=== PATIENT | female | born 1980 | race Caucasian/White ===

== ENCOUNTER 2021-03-05 13:41 | Emergency (ER) | payer OTHER ==
[2021-03-05] MEDS ORDERED: fentaNYL 250 MCG/5 ML SDV IM ONE (14:00)
--- NOTE | 2021-03-05 14:06 | EDM.PDOC ---
ED HPI GENERAL MEDICAL PROBLEM - General Chief Complaint: Abdominal Pain Stated Complaint: [facility] Time Seen by Provider: 03/05/21 14:00 Source of Information: Reports: Patient, RN Notes Reviewed History Limitations: Reports: No Limitations - History of Present Illness INITIAL COMMENTS - FREE TEXT/NARRATIVE: 40-year-old female with acute onset of severe lower abdominal pain while out with her kids. Pain is constant severe and unknown to her historically. No menstrual period history for 16 years due to ablation. She is an extremely large lady and laying on her belly rolling around with pain. Further history obtained later will be giving something for pain upfront while reviewing further evaluation At [facility] the patient is more comfortable but now getting recurrent pain. She is able to give me a history now. She was not doing anything when the pain started acutely in the right lower quadrant. She has had a bit of diarrhea apparently with it. The pain is cons tant but fluctuating in intensity and severe. Is no family history of gallbladder disease family members have had their appendix out Lower Abdominal Pain Score (Numeric/FACES): 10 - Related Data Allergies Allergy/AdvReac Type Severity Reaction Status Date / Time No Known Allergies Allergy Verified 03/05/21 13:46 Home Meds: Home Meds FLUoxetine [PROzac] 40 mg PO DAILY 03/05/21 [History] Omeprazole 20 mg PO DAILY 03/05/21 [History] Topiramate [Topamax] 40 mg PO DAILY 03/05/21 [History] Past Medical History Gastrointestinal History: Reports: GERD Musculoskeletal History: Reports: Fracture Psychiatric History: Reports: Anxiety, Depression - Past Surgical History GI Surgical History: Reports: Cholecystectomy Female Surgical History: Reports: Section, Tubal Ligation Social & Family History - Tobacco Use Tobacco Use Status *Q: Former Tobacco User Years of Tobacco use: 13 Used Tobacco, but Quit: Yes Month/Year Tobacco Last Used: 03/20 - Caffeine Use Caffeine Use: Reports: Coffee - Recreational Drug Use Recreational Drug Use: No ED ROS GENERAL - Review of Systems Review Of Systems: Comprehensive ROS is negative, except as noted in HPI. ED EXAM, GI/ABD - Physical Exam Exam: See Below Text/Narrative:: 40-year-old very large female rolling around on the bed complaining of better pain in her lower abdomen and difficult to examine at this juncture because of pain. 2:45 PM: Patient is able to lay on her back now with notable relief of her pain but becoming more recurrent. HEENT shows eyes ears nose and throat appear to be normal Neck is supple normal range of motion Chest is clear regular rate and rhythm Abdomen is generally soft but she has guarding and tenderness in the right lower quadrant area primarily but some in the right upper quadrant as well on deep palpation. There is no rebound with pushing on the left. No masses are felt but she has a huge abdomen. Skin extremities appear to be normal without rash or deformity Neurologic physiologic urine tone Course - Vital Signs Text/Narrative:: White count is 14,000, potassium 3.3, CRP 1.8 and UA is negative Last Recorded V/S: Last Vital Signs Temp 36.4 C 03/05/21 13:55 Pulse 60 03/05/21 18:42 Resp 16 03/05/21 16:55 BP 131/66 03/05/21 18:42 Pulse Ox 89 L 03/05/21 18:42 - Orders/Labs/Meds Orders: Active Orders 24 hr Category Date Time Status Abdomen Pelvis w Cont [CT] Stat Exams 03/05/21 16:51 Taken Iopamidol [Isovue-300 (61%)] Med 03/05/21 17:15 Active 150 ml IV . DIRECTED Sodium Chloride 0.9% [Normal Saline] 1,000 ml Med 03/05/21 15:00 Active IV ASDIRECTED Sodium Chloride 0.9% [Normal Saline] 80 ml Med 03/05/21 17:15 Active IV ASDIRECTED Medication Orders Sodium Chloride (Normal Saline) 1,000 mls @ 150 mls/hr IV ASDIRECTED VINICIUS Last Admin: 03/05/21 15:56 Dose: 150 mls/hr Documented by: MIHIR Sodium Chloride (Normal Saline) 80 mls @ 3 mls/sec IV ASDIRECTED VINICIUS Last Admin: 03/05/21 17:21 Dose: 3 mls/sec Documented by: AUNG Iopamidol (Iopamidol 612 Mg/Ml 150 Ml Bottle) 150 ml IV . DIRECTED [facility] Last Admin: 03/05/21 17:21 Dose: 150 ml Documented by: AUNG Labs: Laboratory Tests 03/05/21 03/05/21 03/05/21 Range/Units 15:08 15:08 16:55 WBC 13.9 H (4.5-11.0) K/uL RBC 4.87 (3.30-5.50) M/uL Hgb 13.2 (12.0-15.0) g/dL Hct 41.6 (36.0-48.0) % MCV 85 (80-98) fL MCH 27 (27-31) pg MCHC 32 (32-36) % Plt Count 233 (150-400) K/uL Sodium 141 (140-148) mmol/L Potassium 3.3 L (3.6-5.2) mmol/L Chloride 105 (100-108) mmol/L Carbon Dioxide 24 (21-32) mmol/L Anion Gap 15.3 H (5.0-14.0) mmol/L BUN 16 (7-18) mg/dL Creatinine 1.1 H (0.6-1.0) mg/dL Est Cr Clr Drug Dosing 62.40 mL/min Estimated GFR (MDRD) 56 L (>60) Glucose 104 (74-106) mg/dL Calcium 8.2 L (8.5-10.1) mg/dL Total Bilirubin 0.5 (0.2-1.0) mg/dL AST 12 L (15-37) U/L ALT 19 (12-78) U/L Alkaline Phosphatase 84 (46-116) U/L C-Reactive Protein 1.79 H (0.0-0.3) mg/dL Total Protein 6.7 (6.4-8.2) g/dL Albumin 3.3 L (3.4-5.0) g/dL Globulin 3.4 (2.3-3.5) g/dL Albumin/Globulin Ratio 1.0 L (1.2-2.2) Urine Color Yellow (YELLOW) Urine Appearance Clear (CLEAR) Urine pH 6.0 (5.0-8.0) Ur Specific Sixes >= 1.030 (1.008-1.030) Urine Protein Negative (NEGATIVE) mg/dL Urine Glucose (UA) Negative (NEGATIVE) mg/dL Urine Ketones Negative (NEGATIVE) mg/dL Urine Occult Blood Negative (NEGATIVE) Urine Nitrite Negative (NEGATIVE) Urine Bilirubin Negative (NEGATIVE) Urine Urobilinogen 1.0 (0.2-1.0) EU/dL Ur Leukocyte Esterase Negative (NEGATIVE) Urine RBC Not seen (0-5) Urine WBC Not seen (0-5) Ur Epithelial Cells Occasional Amorphous Sediment Few Urine Bacteria Rare Urine Mucus Rare Meds: Medications Generic Name Dose Route Start Last Admin Trade Name Freq PRN Reason Stop Dose Admin Sodium Chloride 1,000 mls @ 150 mls/hr 03/05/21 15:00 03/05/21 15:56 Normal Saline IV 150 mls/hr ASDIRECTED VINICIUS Administration Sodium Chloride 80 mls @ 3 mls/sec 03/05/21 17:15 03/05/21 17:21 Normal Saline IV 3 mls/sec ASDIRECTED VINICIUS Administration Iopamidol 150 ml 03/05/21 17:15 03/05/21 17:21 Iopamidol 612 Mg/Ml 150 Ml Bottle IV 150 ml . DIRECTED VINICIUS Administration Discontinued Medications Generic Name Dose Route Start Last Admin Trade Name Freq PRN Reason Stop Dose Admin Fentanyl 250 mcg 03/05/21 14:00 03/05/21 14:16 Fentanyl 250 Mcg/5 Ml Sdv IM 03/05/21 14:01 Not Given ONETIME ONE Fentanyl 250 mcg 03/05/21 14:12 03/05/21 14:13 Fentanyl 100 Mcg/2 Ml Sdv IM 03/05/21 14:13 250 mcg ONETIME ONE Administration Fentanyl 100 mcg 03/05/21 15:50 03/05/21 15:59 Fentanyl 100 Mcg/2 Ml Sdv IVPUSH 03/05/21 15:51 100 mcg ONETIME ONE Administration Hydromorphone HCl 1 mg 03/05/21 17:32 03/05/21 17:38 Hydromorphone 1 Mg/Ml Syringe IVPUSH 03/05/21 17:33 1 mg ONETIME ONE Administration Hydromorphone HCl 1 mg 03/05/21 19:27 03/05/21 19:38 Hydromorphone 1 Mg/Ml Syringe IVPUSH 03/05/21 19:28 1 mg ONETIME ONE Administration Ondansetron HCl 4 mg 03/05/21 16:41 03/05/21 16:46 Ondansetron 4 Mg/2 Ml Sdv IVPUSH 03/05/21 16:42 4 mg ONETIME ONE Administration Ondansetron HCl 4 mg 03/05/21 17:32 03/05/21 17:39 Ondansetron 4 Mg/2 Ml Sdv IVPUSH 03/05/21 17:33 4 mg ONETIME ONE Administration - Re-Assessments/Exams Free Text/Narrative Re-Assessment/Exam: 03/05/21 19:58 Patient has had significant pain while here with relief from fentanyl and then Dilaudid with some Zofran for nausea. CAT scan shows about a 4 mm stone at the ureteral pelvic junction which should likely pass She is given Toradol 15 mg prior to discharge with admonition to continue with 600 of Motrin periodically throughout the night for recurrent pain and hopefully passed the stone Pharmacies are now closed and narcotic prescriptions not available 03/05/21 20:00 She will be advised also taken some supplemental potassium Departure - Departure Time of Disposition: 20:00 Disposition: Home, Self-Care 01 Clinical Impression: Hypokalemia, Flank pain, Ureterolithiasis, Hydronephrosis due to obstruction of ureter - Discharge Information Referrals: PCP,None [Primary Care Provider] - Forms: ED Department Discharge Sepsis Event Note (ED) - Evaluation Sepsis Screening Result: No Definite Risk - Focused Exam Vital Signs: Vital Signs Temp Pulse Resp BP Pulse Ox 03/05/21 18:42 60 131/66 89 L 03/05/21 17:42 69 137/60 94 L 03/05/21 16:55 73 16 142/73 H 98 03/05/21 15:42 76 141/66 H 94 L 03/05/21 13:55 36.4 C 73 20 135/89 99 03/05/21 13:45 36.4 C 73 20 135/89 99 - My Orders Last 24 Hours: My Active Orders 03/05/21 15:00 Sodium Chloride 0.9% [Normal Saline] 1,000 ml IV ASDIRECTED 03/05/21 16:51 Abdomen Pelvis w Cont [CT] Stat 03/05/21 17:15 Iopamidol [Isovue-300 (61%)] 150 ml IV . DIRECTED Sodium Chloride 0.9% [Normal Saline] 80 ml IV ASDIRECTED - Assessment/Plan Last 24 Hours: My Active Orders 03/05/21 15:00 Sodium Chloride 0.9% [Normal Saline] 1,000 ml IV ASDIRECTED 03/05/21 16:51 Abdomen Pelvis w Cont [CT] Stat 03/05/21 17:15 Iopamidol [Isovue-300 (61%)] 150 ml IV . DIRECTED Sodium Chloride 0.9% [Normal Saline] 80 ml IV ASDIRECTED
[2021-03-05] MEDS ORDERED: fentaNYL 100 MCG/2 ML SDV IM ONE (14:12)
[2021-03-05] MEDS ORDERED: Sodium Chloride 0.9% 1,000 ML IV SCH (15:00)
[2021-03-05] MEDS ORDERED: fentaNYL 100 MCG/2 ML SDV IVPUSH ONE (15:50)
[2021-03-05] MEDS ORDERED: Ondansetron 4 MG/2 ML SDV IVPUSH ONE ×2 (16:41→17:32)
--- NOTE | 2021-03-05 16:42 | CRLUS ---
For Patients: As a result of the Century Cures Act, medical imaging exams and procedure reports are released immediately into your electronic medical record. You may view this report before your referring provider. If you have questions, please contact your health care provider. INDICATION: Right-sided abdominal pain TECHNIQUE: Ultrasound abdomen limited. Sonographic images of the right upper quadrant were obtained using jasmine-scale and color Doppler images. COMPARISON: None FINDINGS: Liver: Difficult sonographic windows without focal lesion. Gallbladder: Status post cholecystectomy. Common bile duct: 7 mm. Pancreas: Mostly obscured by bowel gas without discrete lesion. Right kidney: Normal in size. Normal echotexture and cortex. No masses, stones, or hydronephrosis. Vasculature: Proximal abdominal aorta and IVC are normal. IMPRESSION: Examination is somewhat limited by bowel gas and difficult sonographic windows without gross abnormality for a post cholecystectomy patient. Dictated by Femi Florentino MD @ 03/05/2021 4:41:[address] Femi Florentino @ Mar 05 2021 4:41PM
[2021-03-05] MEDS ORDERED: Sodium Chloride 0.9% 80 ML IV SCH (17:15)
[2021-03-05] MEDS ORDERED: Iopamidol 612 MG/ML 150 ML Bottle IV SCH (17:15)
[2021-03-05] MEDS ORDERED: HYDROmorphone 1 MG/ML Syringe IVPUSH ONE ×2 (17:32→19:27)
[2021-03-05] MEDS ORDERED: Potassium Chloride 10% 20 MEQ/15 ML Soln 15 ML UD Cup PO ONE (20:01)
[2021-03-05] MEDS ORDERED: Ketorolac 30 MG/ML SDV IVPUSH ONE (20:02)
[2021-03-05] MEDS ORDERED: Potassium Chloride 20 MEQ Tab.ER PO ONE (20:11)
--- NOTE | 2021-03-06 23:26 | CRLCT ---
Final Report: INDICATION: Right lower quadrant abdominal pain. TECHNIQUE: Multiple axial images were obtained from the diaphragm to the symphysis pubis after administration of 150 mL of Isovue-300 intravenously. Sagittal and coronal re-formatted images were obtained. COMPARISON: Right upper quadrant abdominal ultrasound done the same day. FINDINGS: The visualized portion of the lung bases are clear. There is no focal liver lesion. The spleen, pancreas and adrenal glands are unremarkable. There are surgical clips in the gallbladder fossa consistent with a previous cholecystectomy. There is no stone seen in the kidneys. There is decreased perfusion of the right kidney when compared to the left with stranding of the fat around the right kidney. There is moderate right hydronephrosis and hydroureter with a 0.5 cm stone just above the ureterovesical junction. There is no evidence of a bowel obstruction. The appendix is visualized in the right lower quadrant and is unremarkable. There is no free fluid in the abdomen or pelvis. The abdominal aorta is normal in caliber. There is no adenopathy. There are degenerative changes in the spine. IMPRESSION: 0.5 cm stone distal right ureter just above the ureterovesical junction causing moderate hydronephrosis and hydroureter with delayed perfusion the right kidney and stranding of fat around the right kidney. Status post cholecystectomy. Please note that all CT scans at this facility use dose modulation, iterative reconstruction, and/or weight-based dosing when appropriate to reduce radiation dose to as low as reasonably achievable. Dictated by Jason Do MD @ 03/05/2021 6:30:50 PM (Electronic Signature) MTDD
== END 2021-03-05 20:52 | disposition home or self-care (01) ==
LOC: JP.ED 13:41
DX: N13.2 Hydronephrosis with renal and ureteral calculous obstruction (principal); E87.6 Hypokalemia; K21.9 Gastro-esophageal reflux disease without esophagitis; Z79.899 Other long term (current) drug therapy; Z87.891 Personal history of nicotine dependence
CPT/HCPCS: 36415; 74177; 76705; 80053; 81001; 85027; 86140; 96372; 96374; 96375; 96376; 99284; A9270; J1170; J1885; J2405; J3010; J7030; Q9967